=== PATIENT | male | born 1985 | race Caucasian/White ===

== ENCOUNTER 2017-01-15 18:52 | Emergency (ER) | payer OTHER ==
[2017-01-15 20:35] LABS: Bilirubin,Urine NEG (Negative); Blood,Urine SM (Negative); Ketones,Urine TR mg/dL (Negative); Leukocyte Esterase,Urine NEG (Negative); Mucus,Urine 2+ /HPF; Nitrite,Urine NEG (Negative); Urobilinogen,Urine < 2.0 mg/dL (<2.0)
[2017-01-16 00:05] LABS: Basophils % (Auto) 0.5 % (0.0-1.8); Eosinophils % (Auto) 3.3 % (0.0-4.3); Hematocrit 44.3 % (35.5-45.6); Hemoglobin 14.3 gm/dl (11.8-15.2); Mean Corpuscular HGB Conc 32 % (32-34); Mean Corpuscular Hemoglobin 27 pg (28-32); Mean Corpuscular Volume 82 fl (84-94); Platelet Count 284 K/mm3 (140-440); Red Blood Count 5.39 M/mm3 (3.65-5.03); Red Cell Distribution Width 12.6 % (13.2-15.2)
[2017-01-16 00:16] LABS: Alanine Aminotransferase 50 units/L (7-56); Albumin 4.6 g/dL (3.9-5); Albumin/Globulin Ratio 1.6 %; Alkaline Phosphatase 78 units/L (35-129); Anion Gap 23 mmol/L; BUN/Creatinine Ratio 12.85; Bilirubin,Total 0.5 mg/dL (0.1-1.2); Blood Urea Nitrogen 9 mg/dL (9-20); Calcium 9.6 mg/dL (8.4-10.2); Carbon Dioxide 23 mmol/L (22-30); Chloride 98.2 mmol/L (98-107); Glucose 225 mg/dL (75-100); Lipase 22 units/L (13-60); Potassium 4.1 mmol/L (3.6-5.0); Sodium 140 mmol/L (137-145); Total Protein 7.5 g/dL (6.3-8.2)
[2017-01-16 03:18] VITALS: BP 105/62
[2017-01-16] MEDS ORDERED: MORPHINE IV ONE (03:34)
[2017-01-16] MEDS ORDERED: ZOFRAN IV ONE (03:34)
--- NOTE | 2017-01-16 03:36 | Emergency Department Report ---
ED Abdominal Pain HPI - General Chief Complaint: Abdominal Pain Stated Complaint: ABD PAIN Time Seen by Provider: 01/16/17 03:19 Source: patient Mode of arrival: Ambulatory Limitations: No Limitations - History of Present Illness Initial Comments: Patient is a 31-year-old male with a history of diabetes who presents with right upper quadrant abdominal pain. Patient reports the pain started 4 weeks ago, has been intermittent in, but has been constant for the last few days. Associated nausea and vomiting times one day today, and tactile fevers. Otherwise no headache, chest pain, shortness of breath, trauma, travel, or sick contacts. Patient has never had any abdominal surgery or history of gallbladder pathology. Location: RUQ Radiation: R flank Migration to: no migration Severity: moderate Severity scale (0 -10): 0 Quality: aching Consistency: constant Improves With: nothing Worsens With: nothing Associated Symptoms: nausea, vomiting - Related Data Previous Rx's Medication Instructions Recorded Last Taken Type Dicyclomine [Bentyl] 20 mg PO QID PRN #12 tablet 01/16/17 Unknown Rx Famotidine [Pepcid] 20 mg PO BID #30 tablet 01/16/17 Unknown Rx Allergies Allergy/AdvReac Type Severity Reaction Status Date / Time No Known Allergies Allergy Verified 01/16/17 04:25 ED Review of Systems ROS: Stated complaint: ABD PAIN Other details as noted in HPI Comment: All other systems reviewed and negative ED Past Medical Hx - Past Medical History Previous Medical History?: Yes Hx Diabetes: Yes - Surgical History Past Surgical History?: No - Social History Smoking Status: Current Some Day Smoker Substance Use Type: Alcohol - Medications Home Medications: Home Medications Medication Instructions Recorded Confirmed Last Taken Type Dicyclomine [Bentyl] 20 mg PO QID PRN #12 tablet 01/16/17 Unknown Rx Famotidine [Pepcid] 20 mg PO BID #30 tablet 01/16/17 Unknown Rx ED Physical Exam - General Limitations: No Limitations General appearance: alert, in no apparent distress - Head Head exam: Present: atraumatic, normocephalic - Eye Eye exam: Present: normal appearance - ENT ENT exam: Present: mucous membranes moist - Neck Neck exam: Present: normal inspection - Respiratory Respiratory exam: Present: normal lung sounds bilaterally. Absent: respiratory distress - Cardiovascular Cardiovascular Exam: Present: regular rate, normal rhythm. Absent: systolic murmur, diastolic murmur, rubs, gallop - GI/Abdominal GI/Abdominal exam: Present: soft, tenderness (R upper quadrant, negative Nunez' s sign), normal bowel sounds. Absent: distended, guarding, rebound, mass, pulsatile mass - Rectal Rectal exam: Present: deferred - Extremities Exam Extremities exam: Present: normal inspection - Back Exam Back exam: Present: normal inspection - Neurological Exam Neurological exam: Present: alert, oriented X3 - Psychiatric Psychiatric exam: Present: normal affect, normal mood - Skin Skin exam: Present: warm, dry, intact, normal color. Absent: rash ED Course Vital Signs 01/15/17 01/16/17 01/16/17 19:54 02:31 03:14 Temperature 98.5 F 97.5 F L 97.8 F Pulse Rate 95 H 75 97 H Respiratory 18 18 18 Rate Blood Pressure 135/79 Blood Pressure 131/86 105/62 [Left] O2 Sat by Pulse 99 99 97 Oximetry 01/16/17 04:37 Temperature Pulse Rate Respiratory 20 Rate Blood Pressure Blood Pressure [Left] O2 Sat by Pulse Oximetry ED Medical Decision Making - Lab Data Result diagrams: 01/15/17 23:22 01/15/17 23:22 - Radiology Data Radiology results: report reviewed RUQ US: WNL as results reviewed by me Results discussed with the patient, he reports no further pain now. Instructed to follow up with PMD and to return to the ED if the pain returns Critical care attestation.: If time is entered above; I have spent that time in minutes in the direct care of this critically ill patient, excluding procedure time. ED Disposition Clinical Impression: RUQ abdominal pain Disposition: DISCHARGED TO HOME OR SELFCARE Is pt being admited?: No Condition: Stable Instructions: Abdominal Pain (ED) Additional Instructions: if you pain worsens or returns, please return to the ED Prescriptions: Dicyclomine [Bentyl] 20 mg PO QID PRN #12 tablet PRN Reason: abdominal pain Famotidine [Pepcid] 20 mg PO BID #30 tablet Referrals: PRIMARY CARE, [Primary Care Provider] - 3-5 Days
[2017-01-16] MEDS ORDERED: BENTYL PO ONE (04:18)
--- NOTE | 2017-01-16 05:35 | Ultrasound Report ---
FINAL REPORT PROCEDURE: US ABDOMEN LIMITED TECHNIQUE: Real-time sonography was performed of the right upper quadrant gallbladder region with image documentation. CPT 86155 HISTORY: Right upper quadrant abdominal pain COMPARISON: No prior studies are available for comparison. FINDINGS: There is no ultrasound evidence of stones or sludge in the gallbladder. The gallbladder wall is normal in thickness measuring 2.6 millimeters. The common bile duct is normal measuring 3.9 millimeters. Liver shows moderate increased echogenicity. This is nonspecific but can be due to fatty infiltration. This limits ultrasound penetration of the liver and therefore limits ultrasound evaluation of the liver. There is no ultrasound evidence of focal liver lesion. The visualized portions of the pancreas show no ultrasound abnormality. The right kidney measures 10.2 centimeters in length and shows no ultrasound abnormality. The left kidney and the spleen were not evaluated on this limited right upper quadrant gallbladder region only ultrasound IMPRESSION: 1. The gallbladder demonstrates no ultrasound abnormality. 2. There is no ultrasound evidence of biliary dilatation. 3. Possible moderate fatty infiltration of liver.
== END 2017-01-16 06:04 | disposition home or self-care (01) ==
LOC: ED 18:52
DX: R10.11 Right upper quadrant pain (principal); E11.9 Type 2 diabetes mellitus without complications; Z72.0 Tobacco use
CPT/HCPCS: 36415; 76705; 80053; 81001; 83690; 85025; 96374; 96375; 99284; J2270; J2405